=== PATIENT | female | born 1940 | race Caucasian/White ===

== ENCOUNTER → 2016-10-06 | Day surgery (SDC) | payer MEDICARE ==
[~2016-10-06] MED LIST: ASPI81TA81 PO; ATOR20TA15 PO; CALC1CAP PO; GLUCCAP4 PO; IOHEXOL 180 MG/ML 20 ML VIAL (for RAD DIAG) EPIDURAL ONE; LIDOCAINE HCL 1% 30 ML VIAL NERV BLOCK ONE; LISI10TA3 PO; MAGN65TA PO; MOBI15TA PO; MULT-65 PO; OMEGCAP PO; PROPOFOL 200 MG/20 ML AMP IV ONE; TRAM50TA PO; TRIAMCINOLONE ACETONIDE 40 MG/ML VIAL NERV BLOCK ONE; VITA1000 PO
--- NOTE | 2016-10-08 21:27 | M6 ---
cc: SHELLEY MIRELES M.D. DATE 10/06/2016 1938 PROCEDURE Fluoroscopically guided left L4-5 and left L5-S1 transforaminal epidural steroid injection. History and physical was completed and signed. Consent was signed. Procedure site was marked. Medications were listed and reconciled. Pain score was recorded. Allergies were noted. Time out was taken. Fluoroscopy time was recorded where applicable. Sedation was administered or directed by Dr. Mireles. The patient was given oxygen. The patient was monitored by a registered nurse. Total procedure time was greater than 15 minutes. PROCEDURE NOTE: An IV was started, blood pressure cuff, pulse oximeter and EKG were applied. The patient was placed in the prone position on a Flako table, sedated with small amounts of Versed and propofol titrated to effect. Vital signs were monitored and remained stable throughout the procedure. The patient remained responsive throughout the procedure. The lumbar area was scrubbed with antimicrobial solution, prepped with 10% Betadine solution, and draped with sterile drapes. Fluoroscopy was used in both the AP and lateral projections to clearly visualize the left L4-5 and left L5-S1 neural foramen. Then separate sterile 22 gauge, 3 1/2-inch Chiba needles were advanced under fluoroscopic guidance into the dorsal-most aspect of each foramen. There was negative aspiration for blood or CSF. There were no reported paresthesias by the patient. There was no washout of 2 mL of Omnipaque. Then after waiting approximately 60 seconds, the patient was slowly given 2 mL of 1% Xylocaine 3 mL of Omnipaque and 40 mg of Kenalog at each location. Following this, the patient was taken to the recovery room with stable vital signs, neurologically intact. W. MD BALDEMAR Cardoso/ /10:35 AM /9:14 PM
== END | disposition home or self-care (01) ==
LOC: PHSDC 09:16
PROVIDERS: ATTEND Pain Medicine Interventional Pain Medicine
DX: M51.86 Other intervertebral disc disorders, lumbar region (principal); I10 Essential (primary) hypertension; E78.00 Pure hypercholesterolemia, unspecified; M19.90 Unspecified osteoarthritis, unspecified site
CPT/HCPCS: 64483; 64484; 99152; J3301; Q9965

== ENCOUNTER → 2017-08-24 | Day surgery (SDC) | payer MEDICARE ==
--- NOTE | 2017-08-23 17:01 | MH ---
cc: Robel Khan MD DATE OF ADMISSION: 08/24/2017 HISTORY OF PRESENT ILLNESS: A 77-year-old female with chronic right-sided otitis media, for right-sided myringotomy and tube placement. PAST MEDICAL HISTORY: Unremarkable. PAST SURGICAL HISTORY: Unremarkable. REVIEW OF SYSTEMS: Unremarkable. FAMILY HISTORY: Unremarkable. SOCIAL HISTORY: Unremarkable. PHYSICAL EXAMINATION: GENERAL: Well-appearing patient, no acute distress noted. HEENT: Reveals right-sided fluid behind drum. LUNGS: Clear. HEART: Regular rate and rhythm. ABDOMEN: Soft and nontender. EXTREMITIES: Without cyanosis, clubbing or edema. NEUROLOGIC: Alert, oriented, nonfocal neurologic exam. IMPRESSION: A patient with significant right-sided serous otitis, for myringotomy and tube placement. Instructed patient as to surgical method, early or late extrusion of tubes, tympanic membrane perforation, conductive or sensorineural hearing loss. The patient appeared to agree, accept and understand the above mentioned risks and benefits of this. No guarantees or warranties regarding outcome were given. We will therefore proceed with surgery. MD ANA M Stevenson/SB , 04:41 PM , 05:00 PM
[~2017-08-24] VITALS: Ht 167.6 cm; Wt 63.8 kg
[~2017-08-24] MED LIST changes: -CALC1CAP PO; +CALC1TAB53 PO; +CALCTAB19 PO; +CETI10CH CHEW; +CHLORHEXIDINE GLUCONATE 2 % 1 PACK (2 CLOTHS) TOPICAL PRN; +DEXAMETHASONE SOD PHOS 4 MG/ML VIAL IV ONE; +ESMOLOL HCL 100 MG/10 ML VIAL IV ONE; -IOHEXOL 180 MG/ML 20 ML VIAL (for RAD DIAG) EPIDURAL ONE; +LACTATED RINGER'S 1000 ML IV PRN; -LIDOCAINE HCL 1% 30 ML VIAL NERV BLOCK ONE; +LIDOCAINE HCL 1% PF 5 ML SYRINGE OTHER ONE; -MAGN65TA PO; +MAPA325T PO; +METOPROLOL TARTRATE 25 MG TAB PO PRN; +MONT10TA4 PO; +OFLOXACIN 0.3% OPTH SOLN 5 ML BTL ONE; +OMEP20CA2 PO; +ONDANSETRON HCL 4 MG/2 ML VIAL IV ONE; +POVIDONE IODINE 5% (ANTISEPSIS KIT) 4 APPLICATIONS EACH NARE PRN; +SODIUM CHLORID 0.9% 500 ML IV PRN; -TRIAMCINOLONE ACETONIDE 40 MG/ML VIAL NERV BLOCK ONE
--- NOTE | 2017-08-24 12:04 | MP ---
cc: Robel Khan MD DATE OF OPERATION: 08/24/2017 DATE OF OPERATION: 08/24/2017. PREOPERATIVE DIAGNOSIS: Chronic otitis media, right side. PROCEDURE PERFORMED: Right myringotomy and T-tube placement. ANESTHESIA: General. ESTIMATED BLOOD LOSS: Minimal. COMPLICATIONS: No complications. OPERATING SURGEON: Dr. Khan. OPERATION: Prepped and draped in the usual fashion. Under microscopic visualization, cerumen cleared from the external auditory canal. Anterior-inferior radial myringotomy incision was made under microscopic visualization, fluid suctioned from the middle ear cavity, tympanostomy T-tube placed in good position along with ofloxacin. No active bleeding noted. The patient tolerated the procedure well. MD ANA M Stevenson/SB , 11:51 AM , 12:03 PM
[2017-08-24 12:14] VITALS: BP 151/71; PULSE 81; RESP 16; TEMP 97.8; O2SAT 100
--- NOTE | 2017-08-24 14:35 | EKG ---
Date Performed: 08/24/2017 Time Performed: 10:49:14 PTAGE: 77 years EKG: Narrow complex tachycardia, probably a re-entry type of supraventricular tachycardia Diffus e ST depression with aVR elevation is concerning for significant ischemic disease, possible acute og cardial infarction Clinical correlation is required PREVIOUS TRACING : 08/24/2017 07.25 DOCTOR: Milton Rivas Interpretating Date/Time 08/24/2017 14:35:27
--- NOTE | 2017-08-24 14:35 | EKG ---
Date Performed: 08/24/2017 Time Performed: 07:25:36 PTAGE: 77 years EKG: SINUS BRADYCARDIA WITH FIRST DEGREE AV BLOCK POSSIBLE RIGHT VENTRICULAR CONDUCTION DELAY Si nce the previous tracing, no significant change noted ABNORMAL ECG PREVIOUS TRACING : 08/10/2013 15.38 DOCTOR: Milton Rivas Interpretating Date/Time 08/24/2017 14:33:41
== END | disposition home or self-care (01) ==
LOC: HSDC 05:53
PROVIDERS: ATTEND Specialist
DX: H66.91 Otitis media, unspecified, right ear (principal); R94.31 Abnormal electrocardiogram [ECG] [EKG]; I10 Essential (primary) hypertension
CPT/HCPCS: 00126; 69436; 93005; J1100; J2405; J3010; J7120